=== PATIENT | male | born 1935 | race Caucasian/White ===

== ENCOUNTER 2020-06-11 13:50 | Emergency (ER) | payer MEDICARE, MEDICAID, OTHER ==
--- NOTE | 2020-06-11 14:50 | EDM.PDOC ---
ED HPI GENERAL MEDICAL PROBLEM - General Chief Complaint: General Stated Complaint: WEAKNESS,DROOLING,SLURRED SPEECH Time Seen by Provider: 06/11/20 14:33 Source of Information: Reports: Patient, RN (ID staff) History Limitations: Reports: No Limitations - History of Present Illness INITIAL COMMENTS - FREE TEXT/NARRATIVE: Patient presents from ID with report of drooling and recent onset of increased need for assistance with ambulation. This started on June 06 (5 days ago). We are told he had been ambulating on his own with one person at his side but now he is a 2-assist. His appetite has decreased. Patient currently denies any pain. He is oriented to person and place but not time. He complies with requests and answers most questions. he can sit up for exam with assistance. - Related Data Allergies Allergy/AdvReac Type Severity Reaction Status Date / Time No Known Allergies Allergy Verified 06/11/20 16:23 Home Meds: Home Meds Acetaminophen [Tylenol Extra Strength] 1,000 mg PO Q6HR PRN 06/11/20 [History] Carbidopa/Levodopa [Sinemet 25-100 mg Tablet] 1 tab PO TID 06/11/20 [History] Levothyroxine Sodium [Euthyrox] [place] [address]/11/20 [History] Magnesium Hydroxide [Milk of Magnesia] 30 ml PO DAILY PRN 06/11/20 [History] Mirabegron [Myrbetriq] 25 mg PO 199906/11/20 [History] Naproxen Sodium 1 tab PO DAILY PRN 06/11/20 [History] Ondansetron [Zofran ODT] 4 mg PO Q8HR PRN 06/11/20 [History] Sennosides/Docusate Sodium [Senna Plus 8.6-50 mg Tablet] 1 tab PO 199906/11/20 [History] metFORMIN HCl [Metformin HCl ER] [place] [address]/11/20 [History] ED ROS GENERAL - Review of Systems Review Of Systems: See Below Constitutional: Reports: Decreased Appetite. Denies: Fever, Weakness HEENT: Denies: Ear Pain, Throat Pain, Vision Change Respiratory: Denies: Shortness of Breath, Cough Cardiovascular: Denies: Chest Pain, Syncope GI/Abdominal: Denies: Abdominal Pain, Vomiting : Denies: Dysuria Musculoskeletal: Denies: Neck Pain, Shoulder Pain, Arm Pain, Back Pain, Hand Pain, Leg Pain, Foot Pain Skin: Denies: Cyanosis, Jaundice, Mottled, Pallor, Diaphoresis Neurological: Reports: Trouble Speaking (minor), Difficulty Walking. Denies: Dizziness, Headache, Seizure, Syncope Psychiatric: Denies: Agitation, Anxiety ED EXAM, GENERAL - Physical Exam Exam: See Below Exam Limited By: No Limitations General Appearance: Alert, WD/WN, No Apparent Distress Eye Exam: Bilateral Eye: EOMI, Normal Inspection, PERRL Ears: Normal External Exam, Hearing Grossly Normal Nose: Normal Inspection, No Blood Throat/Mouth: Normal Inspection, Normal Lips, Normal Voice, No Airway Compromise Head: Atraumatic, Normocephalic Neck: Normal Inspection, Supple, Non-Tender, Full Range of Motion Respiratory/Chest: No Respiratory Distress, No Accessory Muscle Use, Other (on auscultation of lung bases L>R, I heard bowel sounds more prominent than usual; CXR identifies a significant hiatal hernia which explains this) Cardiovascular: Normal Peripheral Pulses, Regular Rate, Rhythm, No Edema, No Murmur Peripheral Pulses: 2+: Carotid (L), Carotid (R), Radial (L), Radial (R), Posterior Tibial (L), Posterior Tibial (R) GI/Abdominal: Normal Bowel Sounds, Soft, Non-Tender, No Organomegaly, No Distention, No Abnormal Bruit Back Exam: Normal Inspection, Full Range of Motion. No: CVA Tenderness (L), CVA Tenderness (R) Extremities: Normal Inspection, Normal Range of Motion Neurological: Alert, Oriented (to person and place), CN II-XII Intact, Normal Cognition, No Motor/Sensory Deficits, Disoriented (doesn't know day or year), Other (no weakness or assymetry; no facial droop) Psychiatric: Normal Affect, Normal Mood Skin Exam: Warm, Dry, Intact, Normal Color, No Rash Course - Vital Signs Last Recorded V/S: Last Vital Signs Temp 97 F 06/11/20 14:22 Pulse 90 06/11/20 16:25 Resp 20 06/11/20 16:25 BP 137/56 L 06/11/20 16:25 Pulse Ox 97 06/11/20 16:25 - Orders/Labs/Meds Orders: Active Orders 24 hr Category Date Time Status EKG Documentation Completion [RC] ASDIRECTED Care 06/11/20 14:12 Active EKG 12 Lead [EK] Stat Ther 06/11/20 14:11 Ordered Labs: Laboratory Tests 06/11/20 06/11/20 06/11/20 Range/Units 14:21 14:21 15:10 WBC 7.00 (5.00-10.00) 10^3/uL RBC 4.22 L (4.50-6.00) 10^6/uL Hgb 12.3 L (13.0-17.0) g/dL Hct 37.8 L (40.0-52.0) % MCV 89.6 (82.0-92.0) fL MCH 29.1 (27.0-31.0) pg MCHC 32.5 (32.0-36.0) g/dL RDW 13.6 (11.5-14.5) % Plt Count 212 (150-400) 10^3/uL MPV 8.9 (7.4-10.4) fL Immature Gran % (Auto) 0.6 (0.0-5.0) % Neut % (Auto) 65.9 (50.0-70.0) % Lymph % (Auto) 22.1 (20.0-40.0) % [place] % (Auto) 8.3 H (2.0-8.0) % Eos % (Auto) 2.7 (1.0-3.0) % Baso % (Auto) 0.4 (0.0-1.0) % Neut # (Auto) 4.61 (2.50-7.00) 10^3/uL Lymph # (Auto) 1.55 (1.00-4.00) 10^3/uL [place] # (Auto) 0.58 (0.10-0.80) 10^3/uL Eos # (Auto) 0.19 (0.10-0.30) 10^3/uL Baso # (Auto) 0.03 (0.00-0.10) 10^3/uL Immature Gran # (Auto) 0.04 (0.00-0.50) 10^3/uL Sodium 140 (136-145) mmol/L Potassium 4.2 (3.3-5.3) mmol/L Chloride 104 (98-115) mmol/L Carbon Dioxide 27.6 (21.0-32.0) mmol/L Anion Gap 12.6 (5-15) mmol/L BUN 15 (6-25) mg/dL Creatinine 0.86 (0.51-1.17) mg/dL Est Cr Clr Drug Dosing TNP Estimated GFR (MDRD) > 60 mL/min Glucose 192 H (75 - 99) mg/dL Calcium 8.6 L (8.7-10.3) mg/dL Total Bilirubin 0.4 (0.2-1.0) mg/dL AST 13 L (15-37) U/L ALT 7 L (12-78) U/L Alkaline Phosphatase 88 (46-116) IU/L Troponin I 0.07 (0.00-0.070) ng/mL Total Protein 7.1 (6.4-8.2) g/dL Albumin 3.33 (3.00-4.80) g/dL Specimen Type Ur[place] Urine Color Yellow (YELLOW) Urine Appearance Slightly cloudy H (CLEAR) Urine pH 6.5 (5.0-9.0) Ur Specific [place] 1.025 (1.005-1.030) Urine Protein Negative (NEGATIVE) mg/dL Urine Glucose (UA) Negative (NEGATIVE) mg/dL Urine Ketones Negative (NEGATIVE) mg/dL Urine Occult Blood Negative (NEGATIVE) Urine Nitrite Negative (NEGATIVE) Urine Bilirubin Negative (NEGATIVE) Urine Urobilinogen 0.2 (0.2-1.0) E.U./dL Ur Leukocyte Esterase Negative (NEGATIVE) Urine RBC 0-5 (0-5) /HPF Urine WBC 0-5 (0-5) /HPF Ur Epithelial Cells Rare /LPF Urine Bacteria Rare (NONE TO FEW) /HPF - Re-Assessments/Exams Free Text/Narrative Re-Assessment/Exam: 06/11/20 16:34 Nothing acute on labs or CXR. Patient appears to be doing quite well currently and requests to go back to ID. I discussed case with Ally Greenwood NP who agrees with plan. Pt stable at discharge. Departure - Departure Time of Disposition: 16:31 Disposition: DC/Tfer to SNF 03 Condition: Good Clinical Impression: Mental status, decreased - Discharge Information Referrals: Marisol Howell MD [Primary Care Provider] - Forms: ED Department Discharge Additional Instructions: Follow up with PCP in 2-3 days; telemedicine visit if no [id number] available at that time. Recheck sooner if worsening. Sepsis Event Note (ED) - Evaluation Sepsis Screening Result: No Definite Risk - Focused Exam Vital Signs: Vital Signs Temp Pulse Resp BP Pulse Ox 06/11/20 16:25 90 20 137/56 L 97 06/11/20 14:22 97 F 92 20 136/58 L 96 - My Orders Last 24 Hours: My Active Orders 06/11/20 14:11 EKG 12 Lead [EK] Stat 06/11/20 14:12 EKG Documentation Completion [RC] ASDIRECTED - Assessment/Plan Last 24 Hours: My Active Orders 06/11/20 14:11 EKG 12 Lead [EK] Stat 06/11/20 14:12 EKG Documentation Completion [RC] ASDIRECTED
[2020-06-11 14:54] LABS: ANION GAP 12.6 mmol/L (5-15); CHLORIDE,CL 104 mmol/L (98-115); SODIUM,NA 140 mmol/L (136-145)
--- NOTE | 2020-06-11 15:29 | CR ---
[id number] RAD/RAD Chest PA or AP 1V EXAM: FRONTAL CHEST INDICATION: CRACKLES IN LEFT LUNG. COMPARISON: None. DISCUSSION: A moderate-sized hiatus hernia is suggested. Mild volume loss in left lung base with no definite infiltrates. The right lung is clear. IMPRESSION: 1. Mild left base atelectasis. No infiltrates are identified. Raphael Quinonez MD 06/11/20 [id number] Thank you for allowing us to participate in the care of your patient.
== END 2020-06-11 18:00 ==
LOC: KA.ED 13:50
DX: R41.82 Altered mental status, unspecified (principal); Z79.899 Other long term (current) drug therapy
CPT/HCPCS: 71045; 80053; 81001; 84484; 85025; 93005; 99284; 99285-25